=== PATIENT | male | born 1955 | race Caucasian/White ===

== ENCOUNTER 2020-03-06 00:19 | Outpatient (CLI) | payer OTHER, SELFPAY ==
[2020-03-06 15:57] LABS: SARS-CoV-2 RNA PCR Negative
== END 2020-03-06 00:20 | disposition home or self-care (01) ==
LOC: ANHCOVIDDT 00:19
PROVIDERS: PCP Family Medicine; Visit Provider Internal Medicine Gastroenterology
DX: Z01.818 Encounter for other preprocedural examination (principal); Z11.59 Encounter for screening for other viral diseases
CPT/HCPCS: 87635; C9803; U0003

== ENCOUNTER 2020-03-08 00:48 | Day surgery (SDC) | payer OTHER, SELFPAY ==
[2020-02-29 08:18] VITALS: BMI 25.9
[2020-03-08 07:04] VITALS: BP 147/78; PULSE 66; RESP 18; TEMP 36.8; O2SAT 100
[2020-03-08] MEDS: LACTATED RINGERS 1,000 ML 150 ML IV CONT (07:20)
--- NOTE | 2020-03-08 08:12 | WPDANESEPPF ---
Anes - Initial Pre Proc Eval Procedure: Operation Date: 03/08/20 08:30 Proposed Procedures p Screening Colonoscopy - Ángel Benavides MD Date/Time: 03/08/20 08:12 Surgeon: Ángel Benavides MD Pre Op Diagnosis: neoplasm screen, hx of colon polyps Patient Data Age: 64 Gender: M Height: 5 ft 10 in Weight: 79 kg Last Vital Signs Temp 98.2 F 03/08/20 07:04 Pulse 66 03/08/20 07:04 Resp 18 03/08/20 07:04 BP 147/78 H 03/08/20 07:04 Pulse Ox 100 03/08/20 07:04 Allergies Allergy/AdvReac Type Severity Reaction Status Date / Time fenofibrate AdvReac Unknown Diarrhea Verified 03/08/20 07:03 Home Medications Medication Instructions Recorded Confirmed Type atorvastatin 40 mg tablet 40 mg PO DAILY #30 tablet 01/24/20 02/29/20 Rx Patient hx anesthesia problems: none Family hx anesthesia problems: none PMFSH Past Medical History Medical History (Updated 03/08/20 @ 08:07 by Robbin Beaulieu MD) Labile hypertension Mixed hyperlipidemia Social History Social History Smoking status: Never smoker Alcohol intake: current Anes - Eval Final PreProcedure Day of Procedure 03/08/20 08:12 Patient weight: normal Heart: regular rate and rhythm Lungs: clear to auscultation Airway: Mallampati scale class III Neurological: alert and oriented Last oral intake: >/= 8 hours ASA classification: II Emergent: no Anesthetic plan: proceed Anesthesia type and monitoring: general GIVS and standard monitoring Informed Consent: The patient's anesthetic plan and its attendant risks and benefits were discussed with the patient/family/POA. Questions were solicited and answers provided to the satisfaction of the patient/family/POA.
--- NOTE | 2020-03-08 08:23 | WPDGICN ---
Assessment and Plan Assessment and plan (1) History of colon polyps: Code(s): Z86.010 - Personal history of colonic polyps Status: Acute Assessment and Plan: Plan is for surveillance colonoscopy today. He had interval evaluation at 5 year intervals is suggested future. GI Consult Note Consult date/time: 03/08/20 08:23 HPI: Johnathan Gaines is a 64 year old male Seen in evaluation at the request of Dr. Kelvin Gibson. Patient has a history of colon polyps 6 years ago. At that time they were found to be adenomatous colon polyps. He returns today for follow-up colonoscopy. His current weight appetite bowel movements are normal. He denies abdominal pain. As bowel habits return to normal. He denies any blood in his stools. Family history is noncontributory. Review of Systems Review of Systems: All systems reviewed & are unremarkable except as noted in HPI and below PMFSH Past Medical History Medical History Labile hypertension Mixed hyperlipidemia Family History Family History Mother Family history of aortic aneurysm, Onset Age: 71 Father Family history of glaucoma Hypertension Family history of elevated blood lipids Social History Social History Smoking status: Never smoker Alcohol intake: current Meds Home Medications and Allergies Home Medications Medication Instructions Recorded Confirmed Type atorvastatin 40 mg tablet 40 mg PO DAILY #30 tablet 01/24/20 02/29/20 Rx Allergies Allergy/AdvReac Type Severity Reaction Status Date / Time fenofibrate AdvReac Unknown Diarrhea Verified 03/08/20 07:03 Vital Signs Vital Signs - 24 hr 03/08/20 07:04 Temperature 36.8 C Pulse Rate 66 Respiratory Rate 18 Blood Pressure 147/78 H Pulse Oximetry 100 Exam Narrative: Exam Narrative: Physical exam reveals patient to be alert. Vital signs are stable. HEENT exam unremarkable. Lungs are clear to auscultation and percussion. Heart is without murmur or extra sounds. Abdominal exam bowel sounds are present soft nontender with no organomegaly. Digital external rectal exam is normal.
[2020-03-08] MEDS: SIMETHICONE ORAL SUSPENSION 20 MG/0.3 ML 30 ML BOTTLE 0.6 ML IRRIGATION (09:25)
[2020-03-08 09:35] VITALS: BP 100/61; PULSE 64; RESP 17; O2SAT 99
[2020-03-08 09:45] VITALS: BP 115/67; PULSE 60; RESP 18; O2SAT 98
[2020-03-08 09:55] VITALS: BP 154/93; PULSE 61; RESP 21; O2SAT 100
== END 2020-03-08 10:12 | disposition home or self-care (01) ==
PROVIDERS: PCP Family Medicine; Visit Provider Internal Medicine Gastroenterology
PROC: 0DJD8ZZ Inspection of Lower Intestinal Tract, Via Natural or Artificial Opening Endoscopic (ICD-10-PCS; CPT 45378; principal; 2020-03-08 08:30)
DX: Z12.11 Encounter for screening for malignant neoplasm of colon (principal); Z86.010 Personal history of colon polyps; K64.8 Other hemorrhoids; I10 Essential (primary) hypertension; E78.2 Mixed hyperlipidemia
CPT/HCPCS: G0105; J2704; J7120

== ENCOUNTER 2020-08-23 08:42 | Outpatient (NON) | payer OTHER, SELFPAY ==
[2020-08-26 01:48] LABS: SARS-CoV-2 RNA PCR Negative
== END 2020-08-23 08:43 ==
LOC: ANHCOVIDDT 08:44
PROVIDERS: PCP Family Medicine; Visit Provider Family Medicine
DX: R11.0 Nausea (principal); R52 Pain, unspecified; Z20.828 Contact with and (suspected) exposure to other viral communicable diseases
CPT/HCPCS: 87635; C9803; U0003

== ENCOUNTER 2020-11-29 09:44 | Outpatient (CLI) | payer OTHER, SELFPAY | END 2020-11-29 09:45 | disposition home or self-care (01) | PROVIDERS: PCP Family Medicine | DX: Z23 Encounter for immunization (principal) | CPT/HCPCS: 0001A; 91300 ==

== ENCOUNTER → 2020-12-14 09:18 | Outpatient (CLI) | payer OTHER, SELFPAY ==
--- NOTE | ~2020-12-14 | XR_ITS ---
EXAMINATION: XR chest 2V DATE: 12/14/2020 09:29 INDICATION: Cough. TECHNIQUE: Frontal and lateral views of the chest were obtained. COMPARISON: Chest 2 views 12/09/2014 FINDINGS: The chest demonstrates clear lungs without pneumonia, pleural effusion, or pneumothorax. Th e heart size is normal. IMPRESSION: 1. No acute cardiopulmonary disease. Reviewed, dictated and finalized at location A.
== END ==
PROVIDERS: PCP Family Medicine; Visit Provider Family Medicine
DX: R05 Cough (principal)
CPT/HCPCS: 71046

== ENCOUNTER 2020-12-20 09:45 | Outpatient (CLI) | payer OTHER, SELFPAY | END 2020-12-20 09:46 | disposition home or self-care (01) | LOC: ANHCOVIDVC 09:45 | PROVIDERS: PCP Family Medicine | DX: Z23 Encounter for immunization (principal) | CPT/HCPCS: 0002A; 91300 ==

== ENCOUNTER → 2021-05-18 03:25 | Outpatient (CLI) | payer OTHER, SELFPAY ==
[2021-05-18 20:11] LABS: SARS-CoV-2 RNA PCR Positive
== END ==
PROVIDERS: PCP Family Medicine; Visit Provider Physician Assistant
DX: U07.1 COVID-19 (principal)
CPT/HCPCS: C9803; U0003; U0005

== ENCOUNTER 2021-10-04 08:29 | Outpatient (CLI) | payer OTHER, SELFPAY ==
--- NOTE | 2021-10-04 12:54 | PCCARD ---
Patient Johnathan Gaines showed up on 10/04/21 for his stress echo. Echo machine would not rock picker patients EKG rhythm. After numerous attempts to try to fix the problem the Bio [facility] department was called. They were unable to correct the problem either. Problem appears to be a cord that goes from stress machine to echo machine. Told patient we were unable to do the test and that we would reschedule him for 10/11/21 at 9:00 am. If we get things fixed sooner we will call patient to work him in at a earlier time.
== END 2021-10-04 08:30 | disposition home or self-care (01) ==
LOC: ANHCARD 08:37
PROVIDERS: PCP Family Medicine; Visit Provider Physician Assistant
DX: R07.9 Chest pain, unspecified (principal); Z53.8 Procedure and treatment not carried out for other reasons
CPT/HCPCS: 99199

== ENCOUNTER 2021-10-12 08:42 | Outpatient (CLI) | payer OTHER, SELFPAY ==
--- NOTE | 2021-10-12 08:52 | EST_ITS ---
Patient Info Name: Johnathan Gaines Age: 66 years : 1955 Gender: Male Ht: 70 in Wt: 185 lbs BSA: 2.05 m2 HR: 73 bpm BP: 161 / 80 mmHg Technical Quality: Fair Exam Date: 10/12/2021 9:03 AM Exam Location: [facility] Pulmonary Patient Status: Outpatient Admit Date: 10/12/2021 Staff Ordering Physician: Gilberto Farr PA-C Maintainer [employer]: KENDRA Attending Provider: DR. NEFF Referring Physician: Chika OSBORNE; Exercise Technologist: Malathi Grewal CT Exercise Physician: Aubrey Neff DO Exam Type: CA stress echo Study Info Indications - chest pain Treadmill exercise stress echocardiogram is performed. Summary 1. 1. Negative Colin exercise stress test for ischemic ST changes by ECG criteria. 2. 2. Good functional capacity, achieving 9.8 METs of workload. 3. 3. Appropriate HR response to exercise. 4. 4. Appropriate HR recovery at 1 minute post exercise. 5. 5. Negative stress echocardiogram for ischemia by wall motion analysis. 6. 6. Patient informed of the above resutls. Stress Echo Findings Left Ventricle Appropriate increase in LV endocardial thickening with systole. Appropriate augmentation of contractility with systole. No wall motion abnormality. Left Ventricle Normal LV systolic function, no wall motion abnormality. Protocol: Colin Stress ECG Details Stage: REST Duration (min): 1 min : 3 sec Speed (mph): 0.0 Grade (%): 0 HR (bpm): 74 SBP (mmHg): 161 DBP (mmHg): 86 METS: --- Stage: REST Duration (min): 11 min : 35 sec Speed (mph): 0.0 Grade (%): 0 HR (bpm): 73 SBP (mmHg): 161 DBP (mmHg): 86 METS: --- Stage: STAGE 1 Duration (min): 1 min : 0 sec Speed (mph): 1.7 Grade (%): 10 HR (bpm): 103 SBP (mmHg): 161 DBP (mmHg): 86 METS: --- Stage: STAGE 1 Duration (min): 2 min : 0 sec Speed (mph): 1.7 Grade (%): 10 HR (bpm): 99 SBP (mmHg): 161 DBP (mmHg): 86 METS: --- Stage: STAGE 1 Duration (min): 3 min : 0 sec Speed (mph): 1.7 Grade (%): 10 HR (bpm): 100 SBP (mmHg): 178 DBP (mmHg): 76 METS: --- Stage: STAGE 2 Duration (min): 1 min : 0 sec Speed (mph): 2.5 Grade (%): 12 HR (bpm): 116 SBP (mmHg): 178 DBP (mmHg): 76 METS: --- Stage: STAGE 2 Duration (min): 2 min : 0 sec Speed (mph): 2.5 Grade (%): 12 HR (bpm): 119 SBP (mmHg): 185 DBP (mmHg): 79 METS: --- Stage: STAGE 2 Duration (min): 3 min : 0 sec Speed (mph): 2.5 Grade (%): 12 HR (bpm): 131 SBP (mmHg): 185 DBP (mmHg): 79 METS: --- Stage: STAGE 3 Duration (min): 1 min : 0 sec Speed (mph): 3.4 Grade (%): 14 HR (bpm): 148 SBP (mmHg): 185 DBP (mmHg): 79 METS: --- Stage: STAGE 3 Duration (min): 1 min : 32 sec Speed (mph): 0.0 Grade (%): 0 HR (bpm): 152 SBP (mmHg): 185 DBP (mmHg): 79 METS: --- Stage: RECOVERY Duration (min): 0 min : 27 sec Speed (mph)
== END 2021-10-12 08:43 | disposition home or self-care (01) ==
PROVIDERS: PCP Family Medicine; Visit Provider Physician Assistant
DX: R07.9 Chest pain, unspecified (principal)
CPT/HCPCS: 93351

== ENCOUNTER 2022-10-10 08:31 | Outpatient (CLI) | payer MEDICARE, SELFPAY ==
[2022-10-10 20:41] LABS: Hemoglobin A1C 5.8 % (<5.7)
[2022-10-10 20:57] LABS: Alanine Aminotransferase 36 U/L (6-50); Albumin Level 4.4 g/dL (3.5-5.1); Alkaline Phosphatase 52 U/L (38-126); Anion Gap 9 mmol/L (8-16); Aspartate Amino Transferase 42 U/L (17-59); Bilirubin,Total 0.8 mg/dL (0.2-1.3); Blood Urea Nitrogen 13 mg/dL (9-20); Calcium 8.7 mg/dL (8.4-10.2); Carbon Dioxide 27 mmol/L (22-30); Chloride 100 mmol/L (98-107); Cholesterol 143 mg/dL (0-200); Estimated Glomerular Filt Rate > 60; Glucose 87 mg/dL (65-110); HDL Direct 60 mg/dL; Potassium 4.6 mmol/L (3.4-5.0); Sodium 136 mmol/L (137-145); Triglycerides 155 mg/dL (<150)
[2022-10-10 21:08] LABS: LDL Cholesterol Direct 31 mg/dL
[2022-10-10 21:27] LABS: Prostate Specific Antigen 4.5 ng/mL (< OR = 4.0)
== END 2022-10-10 08:32 | disposition home or self-care (01) ==
LOC: ANHGOSHLAB 08:33
PROVIDERS: PCP Family Medicine; Visit Provider Family Medicine
DX: E78.2 Mixed hyperlipidemia (principal); R73.03 Prediabetes; R97.20 Elevated prostate specific antigen [PSA]; Z12.5 Encounter for screening for malignant neoplasm of prostate; I10 Essential (primary) hypertension
CPT/HCPCS: 36415; 80053; 80061; 83036; 84153; G0103

== ENCOUNTER → 2022-11-13 08:06 | Outpatient (CLI) | payer MEDICARE, SELFPAY ==
--- NOTE | ~2022-11-13 | CT_ITS ---
EXAMINATION: CT facial bones w con DATE: 11/13/2022 08:44 INDICATION: Radiolucent lesion of left mandible. TECHNIQUE: Computed tomography (CT) of the facial bones and maxillofacial region was performed with 7 5 mL Omnipaque 350 intravenous contrast. Automated exposure control and iterative reconstruction tech [employer] were employed. The dose-length product was 325.90 mGy-cm. COMPARISON: Brain MRI 07/02/2018 FINDINGS: There are no pathologically enlarged lymph nodes. There is plaque in the proximal internal carotid arteries with 0% stenosis relative to normal distal artery lumen diameters. There is a mucous retention cyst in right maxillary sinus. There is mild mucosal thickening in sphenoid sinus. There i s a nonaggressive lytic lesion in left body of the mandible distal to the mental foramen measuring 1. 8 x 1.0 x 1.1 cm. The lesion demonstrates a sclerotic margin and a 13 mm dehiscence at the lingual co rtex. The lesion contains soft tissue attenuation and fat. IMPRESSION: 1. 1.8 cm nonaggressive lytic lesion in the left body of the mandible, stable from 07/02/2018, most li jens a benign lesion such as an intraosseous lipoma. Reviewed, dictated and finalized at location A. ER CHIEF IMPRESSION: 1. 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
[2022-11-13 08:31] LABS: Estimated Glomerular Filt Rate > 60
== END ==
PROVIDERS: PCP Family Medicine; Visit Provider Dentist General Practice
DX: M27.49 Other cysts of jaw (principal)
CPT/HCPCS: 70487; Q9967

== ENCOUNTER 2023-08-26 11:01 | Outpatient (CLI) | payer MEDICARE, SELFPAY ==
--- NOTE | 2023-08-26 11:06 | ECG_ITS ---
Measurements Intervals Gabbs Rate: 86 P: 38 AK: 153 QRS: 18 QRSD: 108 T: 61 QT: 376 QTc: 450 Interpretive Statements SINUS RHYTHM WITH VENTRICULAR PREMATURE COMPLEXES POSSIBLE LEFT ATRIAL ENLARGEMENT DELAYED PRECORDIAL R/S TRANSITION BORDERLINE ST-T WAVE ABNORMALITY- HIGH LATERAL LEADS BASELINE ARTIFACT- I, II, III, AVR, AVL, AVF, V1-V2 BORDERLINE ECG NO PREVIOUS ECG AVAILABLE FOR COMPARISON Electronically Signed On 08-26-2023 11:48:40 HISTORICAL INTERPRETER by Aubrey Robert D.O.
[2023-08-26 11:47] LABS: Anion Gap 8 mmol/L (8-16); Blood Urea Nitrogen 13 mg/dL (9-20); Calcium 9.1 mg/dL (8.4-10.2); Carbon Dioxide 29 mmol/L (22-30); Chloride 94 mmol/L (98-107); Estimated Glomerular Filt Rate > 60; Glucose 111 mg/dL (65-110); Sodium 131 mmol/L (137-145)
== END 2023-08-26 11:02 | disposition home or self-care (01) ==
LOC: ANHSURGERY 11:06
PROVIDERS: Anesthesiology; PCP Family Medicine; Visit Provider Surgery
DX: Z79.899 Other long term (current) drug therapy (principal); I10 Essential (primary) hypertension; Z01.818 Encounter for other preprocedural examination
CPT/HCPCS: 36415; 80048; 93005

== ENCOUNTER 2023-08-28 02:02 | Day surgery (SDC) | payer MEDICARE, SELFPAY ==
[2023-08-25 13:10] VITALS: BMI 25.9
--- NOTE | 2023-08-25 13:15 | PC.NURSE ---
Report to the Outpatient Waiting Room, entrance under the green pavilion located off [facility], at time _1000_ on date _[id number]_. Planned Procedure Time: _1200_. Time changes happen often and if your time is changed the preop area will call you the afternoon before. - You and your visitor will be asked to self-screen and do not enter if you have any COVID symptoms. - A mask is optional within the hospital at this time. Patients may have clear liquids (water, carbonated beverages, clear teas, apple juice) until 3 hours prior to surgery with a maximum of 20 ounces. - No food from midnight until time of surgery Take the following medications with a SIP of water the morning of surgery: __None DO NOT STOP ANY OF YOUR OTHER PRESCRIPTION MEDICATIONS PRIOR TO SURGERY ?EXCEPT THE FOLLOWING Medications to discontinue per physician Fish oil Date to take last dose__Stop today. Take Biscodyl (Dulcolax) 5mg at bedtime Friday. Fleets enema at bedtime Friday and again morning. Please no make-up, nail danish, hairspray, perfume, deodorant, or body powder the day of surgery. No jewelry (including any body piercings) or valuables the day of surgery, leave them at home. Please take a shower or bath the night before, or the morning of, surgery with an antibacterial soap. Wear comfortable, loose fitting clothing. - Jewelry must be removed prior to entering the operating room. Rings and piercings that are not removed may be cut off. - The hospital will not accept responsibility for valuables. - Please leave all valuables, including medications, at home the day of surgery. If you are going home after surgery, a licensed dedicated local truck driver must drive you home. - NO public transportation without another adult if you receive anesthesia. - We recommend that an adult stay with you for 24 hours following discharge. - We also recommend that you do not drive, make important decision, drink alcoholic beverages, or take any drugs that were not prescribed by your health care provider for at least 24 hours after your discharge time. Follow any additional instructions given to you from your surgeon. If you or anyone in your household have experienced Covid symptoms in the past week, please notify your surgeon or the nurse liaison at the phone number below for possible testing. Telephone instructions given to _Johnathan_and asked if any additional questions and then verbalized understanding. Patient advised to call surgeon office or pre surgery nurse liaison [phone] if any additional questions.
[2023-08-28] VITALS (9 sets, daily range): BP systolic 138–164; BP diastolic 73–93; PULSE 60–94; RESP 12–18; TEMP 36.4–36.9; O2SAT 96–100
[2023-08-28] MEDS: KETOROLAC 15 MG/ML VIAL (*BKC) IV PUSH (10:55)
[2023-08-28] MEDS: LACTATED RINGERS 1,000 ML 30 ML IV CONT (10:55)
[2023-08-28] MEDS: ACETAMINOPHEN 500 MG TABLET 1000 MG PO (10:55)
[2023-08-28 10:56] LABS: Sodium 132 mmol/L (137-145)
--- NOTE | 2023-08-28 10:57 | P.PNAN_ITS ---
Anes - Initial Pre Proc Eval Procedure: Operation Date: 08/28/23 12:00 Proposed Procedures p Excision Thrombosed External Hemorrhoid - Filemon Coulter MD Date/Time: 08/28/23 10:57 Surgeon: Filemon Coulter MD Pre Op Diagnosis: Thrombosed Ext Hemorrhoid Patient Data Age: 68 Gender: M Height: 1.78 m Weight: 81.8 kg Allergies Allergy/AdvReac Type Severity Reaction Status Date / Time lisinopril AdvReac Intermediate cough Verified 08/25/23 13:08 fenofibrate AdvReac Unknown Diarrhea Verified 08/25/23 13:08 Home Medications Medication Instructions Recorded Confirmed Type atorvastatin 20 mg tablet See Rx Instructions .Route 08/06/21 08/25/23 Rx .COMPLEX #90 tabs sildenafil 50 mg tablet 50 mg PO DAILY PRN sexual activity 12/04/21 08/25/23 Rx #30 tabs irbesartan 150 1 tablet PO DAILY #100 tabs 02/05/23 08/25/23 Rx mg-hydrochlorothiazide 12.5 mg tablet omega-3 fatty acids 1,000 mg PO DAILY 08/25/23 08/25/23 History Laboratory Tests 08/28/23 10:38 Sodium 132 L mmol/L (137-145) Patient hx anesthesia problems: none Family hx anesthesia problems: none Results Review: All pre-operative results and documents have been reviewed as part of the pre- operative evaluation. FORMERLY [facility], [facility] Past Medical History Medical History Cough resolved off lisinopril Dry cough resolved off linisnopril Labile hypertension Mixed hyperlipidemia Family History Family History Mother Family history of aortic aneurysm, Onset Age: 71 Father Family history of glaucoma Hypertension Family history of elevated blood lipids Social History Social History Smoking status: Never smoker Alcohol intake: current Drinks per week: 12 Substance use: never Lack of Transportation: No Lack of Food: Never True Current Housing: I Have Housing Concerned About Future Housing: No Difficulty Paying Gas/Electric Bills: No Difficulty Paying for Meds: No Currently Unemployed: No Education: Trade/Vocational Certificate Difficulty w/ Childcare or Family Care: No Living arrangements: with family Spiritual care concerns: No Anes - Eval Final PreProcedure Day of Procedure 08/28/23 10:57 Patient weight: normal Heart: regular rate and rhythm Lungs: clear to auscultation Airway: Mallampati scale class II Neurological: alert and oriented Last oral intake: >/= 8 hours ASA classification: III Emergent: no Anesthetic plan: proceed Anesthesia type and monitoring: general LMA and standard monitoring Results Review: All pre-operative results and documents have been reviewed as part of the pre- operative evaluation. Informed Consent: The patient's anesthetic plan and its attendant risks and benefits were discussed with the patient/family/POA. Questions were solicited and answers provided to the satisfaction of the patient/family/POA.
--- NOTE | 2023-08-28 11:09 | SUR.PREOP ---
na+ was repeated today. dr thapa aware of new na+ of 132 today. ok to procede.
--- NOTE | 2023-08-28 12:02 | WPDHPUPDATE1 ---
History and Physical Update Update Date/Time: 08/28/23 12:02 History and Physical has been reviewed, including an updated exam of the patient. There are NO changes in the patient's condition. Risks, benefits, and alternatives have been discussed and questions answered. Patient agrees to proceed with procedure.
[2023-08-28] MEDS: ceFAZolin 2 GM/D5W 50 ML 2 GM/50 ML BAG IVPB (12:08)
[2023-08-28] MEDS: BUPIVACAINE/EPINEPHRINE 0.5% 50 ML VIAL 10 ML INFILTRATE (12:34)
--- NOTE | 2023-08-28 13:11 | W.PM.PROC2 ---
Procedure Note - Detailed Date of Procedure 08/28/23 Pre-op Diagnosis Thrombosed Ext Hemorrhoid Post-op Diagnosis Same Procedure Performed Excision right anterior thrombosed external hemorrhoid Surgeon Filemon Coulter MD Short Order Fry Cook Willis Phillips [facility] Anesthesia General and Local (0.5% MARCAINE WITH EPINEPHRINE) Indications Patient noticed a painful nodule after bowel movement on the right side of the rectum about 3 weeks ago. The pain has dissipated but the nodule persists. He was seen in the office and found to have a large thrombosed external hemorrhoid in the right anterior position. He is taken to surgery now for excision to prevent recurrence. Findings Large thrombosed external hemorrhoid on the right anterior position. No significant internal hemorrhoids. No other external hemorrhoids. Description of Procedure Patient was taken to surgery and induced into general anesthesia. He was turned prone and then placed in prone myah-knife position. The buttocks were taped apart. Prep and drape was carried out. First we examined the perianal skin and the anal canal using a Hill-Regino anoscope. No other internal or external hemorrhoids were evident that were pathologic. I then infiltrated local all around the right-sided thrombosed external hemorrhoid. The thrombosed hemorrhoid was then excised with an ellipse. There was minimal bleeding and this was controlled with cautery. I then closed the wound with interrupted 3-0 chromic suture. I reinspected the anal canal and all looked good with no bleeding and no other findings of concern. Patient was then dressed over the rectum with Xeroform gauze fluffs and Promise panties. He was returned to a supine position. He was awakened and extubated. He was then taken to recovery in good condition. Sponge and needle counts were correct x2. Estimated Blood Loss -10.0 Drains No Packing No Pathology Yes (Right anterior thrombosed external hemorrhoid) Complications No immediate complications Condition Stable Disposition PACU [facility] Billing Surgery - Charge Forward: Surgery Billing (Excision thrombosed external hemorrhoid)
== END 2023-08-28 15:10 | disposition home or self-care (01) ==
PROVIDERS: Anesthesiology; PCP Family Medicine; Visit Provider Surgery
PROC: (CPT 46320; principal; 2023-08-28 12:00)
DX: K64.5 Perianal venous thrombosis (principal); I10 Essential (primary) hypertension
CPT/HCPCS: 46320; 36415; 80048; 84295; 88304; 93005; A9270; J0690; J1100; J1885; J2250; J2405; J2704; J3010; J7120

== ENCOUNTER 2024-10-18 15:14 | Outpatient (CLI) | payer MEDICARE, SELFPAY ==
--- NOTE | ~2024-10-18 | XR_ITS ---
HISTORY: M54.9 - Dorsalgia, unspecified COMPARISON: None. TECHNIQUE: 2 view lumbar spine. FINDINGS: Lumbar vertebral bodies are normally aligned. There are 5 non-rib bearing lumbar vertebral bodies. Significant degenerative disease is identified with osteophyte formation, disc space narrowing and en dplate changes. Facet arthropathy is also present. On standing view, multiple air-fluid levels are identified, to the right of midline. There are no lytic or sclerotic lesions. IMPRESSION: Significant degenerative disease, without acute compression fractures. Multiple air-fluid levels to the right of midline incidentally noted. Reviewed, dictated and finalized at location A. TER FOREMAN
--- NOTE | ~2024-10-18 | XR_ITS ---
HISTORY: M54.9 - Dorsalgia, unspecified COMPARISON: None TECHNIQUE: 3 views of the thoracic spine were performed. FINDINGS: No acute compression fracture is present. Bone mineralization is age-appropriate. No significant degenerative disease. IMPRESSION: Unremarkable radiographic evaluation of the thoracic spine, as detailed above. Reviewed, dictated and finalized at location A. E RECLAMATION TENDER
== END 2024-10-18 15:15 | disposition home or self-care (01) ==
LOC: GOSHIMG 15:15
PROVIDERS: PCP Family Medicine; Visit Provider Family Medicine
DX: M51.369 Other intervertebral disc degeneration, lumbar region without mention of lumbar back pain or lower extremity pain (principal)
CPT/HCPCS: 72072; 72100

== ENCOUNTER 2024-10-25 10:26 | Outpatient (CLI) | payer MEDICARE, SELFPAY ==
--- NOTE | ~2024-10-25 | XR_ITS ---
Supine and upright views of the abdomen Clinical history: Abdominal pain Findings: Bowel gas pattern is nonspecific. No evidence for obstruction or free air. No abnormal mass lesion or calcification is seen. Osseous structures are intact. Impression: No significant abnormality is seen. Reviewed, dictated and finalized at [facility]. ION CHIEF Impression: No significant abnormality is seen.
== END 2024-10-25 10:27 | disposition home or self-care (01) ==
LOC: GOSHIMG 10:26
PROVIDERS: PCP Family Medicine; Visit Provider Family Medicine
DX: R93.3 Abnormal findings on diagnostic imaging of other parts of digestive tract (principal); M54.9 Dorsalgia, unspecified
CPT/HCPCS: 74018

== ENCOUNTER 2024-11-04 10:34 | Outpatient (RCR) | payer MEDICARE, SELFPAY ==
--- NOTE | 2024-11-04 11:56 | OPREHPOC ---
Outpatient Therapy Plan of Care This is a Multidisciplinary Plan of Care that may contain components documented by all disciplines (PT, OT, and ST.) PT Problem 1 PT Problem #1 Knowledge Deficit PT Goal 1 Goal / Goal Update *indep with HEP Target Visit 6 PT Problem 2 PT Problem #2 Pain PT Goal 1 Goal / Goal Update * pt report pain rating at 1/10 at worst Target Visit 6 PT Problem 3 PT Problem #3 Impaired Flexibility PT Goal 1 Goal / Goal Update increase hip and trunk flexibility to improve posture and decrease strain on spine: anterior hip/quad length with prone knee flexion to 140' 1* R 2* L supine piriformis with cross leg, pt report not tight 3* R 4* L 5* in all 4's, pt have minimal motion of thoracic spine Target Visit 6 PT Problem 4 PT Problem #4 Impaired Functional Mobility PT Goal 1 Goal / Goal Update * pt demonstrate correct body mechanics with lifting, simulated home tasks Target Visit 6
--- NOTE | 2024-11-04 11:56 | PTOPEVAL1 ---
Assessment and note entered by Fior France, PT Evaluation Information Assessment Status Evaluation ICD-10 Condition Codes (PT) Pain in low back M54.50 Onset Jul 2024 Subjective Information in July was trimming trees, using chain saw and pulled back muscle; is feeling better now, but still there some; had x ray-reports arthritis activity: indep with all home and self care tasks retired; Reported Pain Level Pain Score 1: Self Report Additional Pain Score Comments low back tight, not that bad; is doing better now; staying 1/10, little sore decrease pain: stretching back, heat pad, push thumb on R side of low back to get muscle to relax increase pain: nothing past few days; educated on use of heat & stretching PRN to manage tightness, use of tennis ball over the sore spot, in supine or standing with back to wall Assessment PT Clinical Summary Johnathan has the diagnosis of back pain. He reports onset in July with trimming trees, chain saw use and lifting wood. Since then, pain is less and almost gone. He is active with home activities. Self assessment Oswestry rating of 8% limitation. With the evaluation: he has good strength of trunk and LE's; slight tightness over R and L piriformis and quads, with decreased spinal mobility of lumbar extension and thoracic motion. Skilled PT services are indicated for education for pain management and back care, HEP. Use of modalities PRN for pain. Plan of Care Interventions Electrical Stimulation,Hot Pack/Cold Pack,Manual Therapy,Neuro Re-education,Patient/Caregiver Education,Therapeutic Activities,Therapeutic Exercise,Ultrasound PT Services Indicated Yes Treatment Frequency and 1-2x/wk for 6 visits Duration These treatments will address the objective and functional deficits as defined above. The patient will be advanced safely and appropriately in order for the patient to progress towards his/her prior level of function. Additional exercises will be introduced and as well as a comprehensive home exercise program upon discharge, if needed, ?to ensure carryover of functional gains achieved in the clinic. This treatment plan has been reviewed and agreement upon by the patient.
--- NOTE | 2024-12-17 12:51 | PTOPDC ---
Assessment and note entered by Fior France, PT Assessment Status Discharge - Pt Not Present ICD-10 Condition Codes (PT) Pain in low back M54.50 Onset Jul 2024 Subjective Information pt was not seen this date; Assessment PT Clinical Summary Johnathan received the PT evaluation on Nov 04 and was issued HEP. He did not call for any further treatment sessions Discharge PT. The goals were not addressed. Plan of Care PT Services Indicated No
== END 2024-12-17 14:33 | disposition home or self-care (01) ==
LOC: ANHPT 10:34
PROVIDERS: PCP Family Medicine; Visit Provider Family Medicine
DX: M54.50 Low back pain, unspecified (principal)
CPT/HCPCS: 97110; 97161; 97530

== ENCOUNTER 2025-01-24 03:19 | Observation (INO) | payer MEDICARE, SELFPAY ==
[2025-01-24] VITALS (14 sets, daily range): BP systolic 122–148; BP diastolic 54–80; PULSE 72–100; RESP 14–20; TEMP 36.2–38.3; O2SAT 95–100; BMI 25.2
--- NOTE | ~2025-01-24 | CT_ITS ---
CT of the Abdomen and Pelvis: Indication: Abdominal pain Technique: 2.5 mm axial scans were obtained through the abdomen and pelvis following intravenous adm inistration of 100 cc of Omnipaque 350. Dose reduction technique was used on this scan by utilizing a utomated exposure control and iterative reconstruction technique. The dose-length product (DLP) was 4 09.69 mGy-cm. Findings: Scans through the lung bases are unremarkable. Posterior hepatic cyst noted. Small calcified gallstones are present. The spleen, pancreas, adrenals and kidneys are within normal limits. There are atherosclerotic calcifications of the aorta. No lymp hadenopathy. Appendix dilated to 13 mm with periappendiceal inflammatory stranding, consistent with acute appendic itis. No abscess or free air. No bowel obstruction. Images through the pelvis were performed. Urinary bladder unremarkable. Prostate gland is significant ly enlarged. No ascites. Impression: Acute appendicitis, as detailed above. No abscess or free air. Cholelithiasis. Significantly enlarged prostate gland. Reviewed, dictated and finalized at location . Impression: Acute appendicitis, as detailed above. No abscess or free air. Cholelithiasis. Significantly enlarged prostate gland.
--- OUTSIDE RECORDS SUMMARY | 2025-01-24 03:22 | XMS_ITS | Clinical Summary ---
Author Organization [facility] Address [address] [place] [id number] Care Team Providers Care Communication Center Operator Name Role Phone Unavailable Primary Care Provider Unavailabl e Social History Tobacco Use Types Packs/Day Years Used Date Smoking Tobacco: Never Assessed Sex and Gender Information Value Date Recorded Sex Assigned at Not on file Legal Sex Male 7:23 PM CDT Gender Identity Not on file Sexual Orientation Not on file Plan of Treatment Health Maintenance Due Date Last Done Comments Colorectal Cancer Screening Colonoscopy (10 Years) 1955 Hepatitis C 1975 DTaP, Tdap and Td Vaccines ( 1 - Tdap) 1976 Pneumococcal Vaccine: 50+ Ye ars (1 of 1 - PCV) 2007 Zoster Vaccines (1 of 2) 2007 COVID-19 Vaccine ( - 2023-2 5 season) 2024 RSV Immunization or 60+ Years (1 - 1-dose 75+ series) 2032 Meningococcal B Vaccine Aged Out No l onger eligible based on patient's age to complete this topic Meningococcal Vaccine Aged Out No philippe heidi eligible based on patient's age to complete this topic RSV Immunizations Under 20 Months Aged Out No longer eligible based on patient's age to complete this topic
--- OUTSIDE RECORDS SUMMARY | 2025-01-24 03:22 | XMS_ITS | Clinical Summary ---
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
--- OUTSIDE RECORDS SUMMARY | 2025-01-24 03:22 | XMS_ITS | Encounter Summary ---
Author Organization [employer] Address [address] [place] [address] Care Team Providers Care Before School Babysitter Name Role Phone Unavailable Primary Care Provider Unavailabl e Encounter Details Date Type Department Care Team (Late st Contact Info) Description 09/16/2017 Lab Requisition [email or web address] [address] [employer] [address] [place] [address] [place] [id number] [facility] [address] [place] [address] Encounter for general adult medical examination without abnormal findings Social History Tobacco Use Types Packs/Day Years Used Date Smoking Tobacco: Never Assessed Sex and Gender Information Value Date Recorded Sex Assigned at Not on file 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 Blood Collection / Unknown 09/16/2017 2:25 PM MIDDLE SCHOOL PRINCIPAL 09/16/2017 11:21 PM MIDDLE SCHOOL PRINCIPAL Narrative [facility] [employer] [facility] - 09/17/2017 12:40 AM MIDDLE SCHOOL PRINCIPAL The concentration of PSA in a given specimen, as determined by assays from different manufacturers, can vary because of differences in assay methods and reagent specificity. Values obtained with different assay methods cannot be used interchangeably. The testing method in use is the CHARO Electrochemiluminescence Immunoassay. Dariel Scott MD CHEMISTRY ORDERABLES Final R esult Performing Organization Address [facility]/State/[facility] Co de Phone Number [facility]# [id number] [address] [place] [id number] documented in this encounter Visit Diagnoses Diagnosis Encounter for general adult medical examination without abnormal findings Routine general medical examination at a health care facility documented in this encounter
[2025-01-24 04:21] LABS: Basophils Percent Auto 0.2 % (0.2-1.2); Eosinophils Percent Auto 0.1 % (0-4.4); Hematocrit 43.3 % (42.0-52.0); Hemoglobin 15.1 g/dL (14.0-18.0); Immature Granulocyte Absolute 0.07 K/mm3 (0.00-0.031); Immature Granulocyte Percent A 0.4 % (0-0.5); Lymphocytes Absolute Auto 1.04 K/mm3 (0.9-3.2); Lymphocytes Percent Auto 5.2 % (18.3-44.2); Mean Corpuscular HGB Conc 34.9 g/dl (32-36); Mean Corpuscular Hemoglobin 31.6 pg (26-34); Mean Corpuscular Volume 90.6 fl (80-100); Mean Platelet Volume 9.7 fl (7.4-10.4); Monocytes Absolute Auto 0.5 K/mm3 (0.1-0.6); Monocytes Percent Auto 2.5 % (2.6-8.5); Neutrophils Absolute Auto 18.2 K/mm3 (1.3-6.7); Neutrophils Percent Auto 91.6 % (45.5-73.1); Platelet Count Result 307 k/mm3 (150-375); Red Blood Count 4.78 M/mm3 (4.6-6.20); Red Cell Distribution Width 13.8 % (11.5-14.5); White Blood Count 19.9 K/mm3 (4.5-10.0)
--- NOTE | 2025-01-24 04:26 | ED_ITS ---
HPI - Abdominal Pain General Chief Complaint: Abdominal Pain Stated Complaint: abdominal pain Time Seen by Provider: 01/24/25 04:20 Source: patient Mode of arrival: ambulatory Limitations: no limitations History of Present Illness HPI narrative: This is a 69-year-old male, with history of hypertension, presents to the emergency department complaining of right lower quadrant abdominal pain for the past day. The patient states Friday evening he aorta thought was bad yogurt. He felt ?balled up in the gut rated 5/10 radiation. The pain progressively worsened and is now sharp, rated 8/10 and primarily in the right lower quadrant. He states he last ate approximately 8 hours ago. He states he is able to pass gas and has had a small bowel movement. He denies bleeding, chest pain, shortness of breath, loss of consciousness. He has no other complaints at this time. Related Data Home Medications ?Medication ?Instructions ?Recorded ?Confirmed ?Last Taken ?Type amlodipine 10 mg tablet (Norvasc) 5 mg PO DAILY blood pressure 01/24/25 01/24/25 01/23/25 History Allergies Allergy/AdvReac Type Severity Reaction Status Date / Time lisinopril AdvReac Intermediate cough Verified 01/24/25 04:14 fenofibrate AdvReac Unknown Diarrhea Verified 01/24/25 04:14 Review of Systems 2 Review of Systems: All systems reviewed & are unremarkable except as noted in HPI and below PMFSH Past Medical History Medical History History of colon polyps Vitamin D deficiency Essential (primary) hypertension Mixed hyperlipidemia Pre-diabetes Labile hypertension Mixed hyperlipidemia Surgical History Surgical History Hx of hemorrhoidectomy (~07/2023) Excision right anterior thrombosed external hemorrhoid 08/28/23 [facility] Family History Family History Mother Family history of aortic aneurysm, Onset Age: 71 Father Family history of glaucoma Hypertension Family history of elevated blood lipids Social History Social History Social History: Caffeine- 1.5 cup coffee daily Smoking status: Never smoker Tobacco type: cigars Second hand tobacco smoke exposure: No Alcohol intake: current Drinks per week: 3 Substance use: never Substance use type: does not use Do You Feel Safe in your Home?: Yes Lack of Transportation: No Lack of Food: Never True Current Housing: I Have Housing Concerned About Future Housing: No Difficulty Paying Gas/Electric Bills: No Difficulty Paying for Meds: No Currently Unemployed: No Education: Trade/Vocational Certificate Difficulty w/ Childcare or Family Care: No Living arrangements: with family Gender identity (if verbalized by the patient): Male Spiritual care concerns: No Agree to blood products: Yes Exam 2 Narrative: GENERAL: Well-developed, well-nourished, and in no acute distress. HEAD: Normocephalic, atraumatic. EYES: PERRLA and EOMI. CHEST: Clear to auscultation. No respiratory distress. No wheezes rales or rhonchi HEART: Regular rate and rhythm. No murmur heard. Normal peripheral pulses. ABDOMEN: Soft, tender palpation in the right lower quadrant with rebound and active guarding, nondistended, normal active bowel sounds. No CVA tenderness EXTREMITIES: Normal range of motion. No edema. SKIN: Warm, dry, no rash. NEURO: Alert and oriented x3. No focal deficit. Moving all 4 limbs spontaneously PSYCH: Normal mood and affect. Course Course Emergency Course: 05:27 - STAT Rad interpretation of CT abdomen pelvis demonstrates a ?dilated appendix measuring up to 13 mm with appendicolith and periappendiceal inflammatory stranding compatible with acute appendicitis. No collection or free air. No bowel obstruction. Minimal colonic diverticulosis without diverticulitis. Cholelithiasis. Prostatomegaly and bladder wall thickening; correlate with urinalysis. ? White blood cell count elevated at 19.9 with hemoglobin of 15.1 and platelets of 307. Chemistries demonstrate mild hyponatremia with sodium of 128. Lactic acid 3.1. 05:40 - I discussed the patient with general surgeon, Dr. Lipscomb who accepts admission. Vital Signs Vital signs: Vital Signs Temperature 97.4 F L 01/24/25 03:21 Pulse Rate 80 01/24/25 03:21 Respiratory Rate 20 01/24/25 03:21 Blood Pressure 122/54 L 01/24/25 03:21 Pulse Oximetry 98 01/24/25 03:21 Oxygen Delivery Room Air 01/24/25 03:21 Temperature 97.4 F L 01/24/25 03:21 Pulse Rate 73 01/24/25 06:17 Respiratory Rate 18 01/24/25 06:17 Blood Pressure 132/76 01/24/25 06:17 Pulse Oximetry 100 01/24/25 06:17 Oxygen Delivery Room Air 01/24/25 03:21 MDM - Abdominal Pain MDM Narrative Medical decision making narrative: Plan: Labs, imaging, pain control, antiemetics, reassess Differential Diagnosis Differential diagnosis: Likely abdominal pain, acute appendicitis, calculus of kidney, constipation, diverticulitis, gastroenteritis, small bowel obstruction and other (Ischemic bowel, UTI, pyelonephritis, other) Lab Data 01/24/25 04:14 01/24/25 04:14 Labs: Lab Results 01/24/25 01/24/25 Range/Units 04:14 04:33 WBC 19.9 H (4.5-10.0) K/mm3 RBC 4.78 (4.6-6.20) M/mm3 Hgb 15.1 (14.0-18.0) g/dL Hct 43.3 (42.0-52.0) % MCV 90.6 (80-100) fl MCH 31.6 (26-34) pg MCHC 34.9 (32-36) g/dl RDW 13.8 (11.5-14.5) % Plt Count 307 (150-375) k/mm3 MPV 9.7 (7.4-10.4) fl Immature Gran % (Auto) 0.4 (0-0.5) % Neut % (Auto) 91.6 H (45.5-73.1) % Lymph % (Auto) 5.2 L (18.3-44.2) % [place] % (Auto) 2.5 L (2.6-8.5) % Eos % (Auto) 0.1 (0-4.4) % Baso % (Auto) 0.2 (0.2-1.2) % Lymph # (Auto) 1.04 (0.9-3.2) K/mm3 [place] # (Auto) 0.5 (0.1-0.6) K/mm3 Eos # (Auto) 0.0 (0-0.3) K/mm3 Baso # (Auto) 0.0 (0.0-0.1) K/mm3 Abs Immat Gran (auto) 0.07 H (0.00-0.031) K/mm3 Absolute Neuts (auto) 18.2 H (1.3-6.7) K/mm3 Absolute Nucleated RBC 0.000 (0.0-0.012) K/mm3 Nucleated RBC % 0.0 (0.0-0.2) % Sodium 128 L (137-145) mmol/L Potassium 4.1 (3.4-5.0) mmol/L Chloride 93 L (98-107) mmol/L Carbon Dioxide 22 (22-30) mmol/L Anion Gap 13 H (4-12) mmol/L BUN 13 (9-20) mg/dL Creatinine 0.80 (0.7-1.3) mg/dL Estim Creat Clear Calc 81 ml/min Estimated GFR > 60 (59 - ) Glucose 188 H (65-110) mg/dL Lactic Acid 3.1 H (0.7-2.0) mmol/L Calcium 9.0 (8.4-10.2) mg/dL Total Bilirubin 1.5 H (0.2-1.3) mg/dL AST 23 (17-59) U/L ALT 27 (6-50) U/L Alkaline Phosphatase 65 (38-126) U/L Total Protein 8.0 (6.3-8.2) g/dL Albumin 4.7 (3.5-5.1) g/dL Lipase 32 (23-300) U/L Discharge Plan Discharge Clinical Impression: Acute hyponatremia, Abdominal pain, RLQ Acute appendicitis Qualifiers: Acute appendicitis type: other Qualified Code(s): K35.890 - Other acute appendicitis without perforation or gangrene Patient Disposition: Still a Patient Condition: Serious Time of Disposition: 05:40
[2025-01-24] MEDS: MORPHINE SULFATE (*CRX) 4 MG/ML INJ IV PUSH ×3 (04:34→08:56)
[2025-01-24] MEDS: ONDANSETRON INJ 4 MG/2 ML VIAL IV PUSH (04:34)
[2025-01-24 04:39] LABS: Alanine Aminotransferase 27 U/L (6-50); Albumin Level 4.7 g/dL (3.5-5.1); Alkaline Phosphatase 65 U/L (38-126); Anion Gap 13 mmol/L (4-12); Aspartate Amino Transferase 23 U/L (17-59); Bilirubin,Total 1.5 mg/dL (0.2-1.3); Blood Urea Nitrogen 13 mg/dL (9-20); Carbon Dioxide 22 mmol/L (22-30); Chloride 93 mmol/L (98-107); Estimated CRCL calculation 81 ml/min; Estimated Glomerular Filt Rate > 60; Glucose 188 mg/dL (65-110); Lipase 32 U/L (23-300); Potassium 4.1 mmol/L (3.4-5.0); Sodium 128 mmol/L (137-145)
[2025-01-24 05:00] LABS: Lactic Acid Reflex 3.1 mmol/L (0.7-2.0)
--- OUTSIDE RECORDS SUMMARY | 2025-01-24 05:02 | XMS_ITS | Clinical Summary ---
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
--- OUTSIDE RECORDS SUMMARY | 2025-01-24 05:02 | XMS_ITS | Clinical Summary ---
Author Organization [facility] Address [address] [place] [id number] Care Team Providers Care Antenna Engineer Name Role Phone Unavailable Primary Care Provider [...]
--- OUTSIDE RECORDS SUMMARY | 2025-01-24 05:02 | XMS_ITS | Encounter Summary ---
Author Organization [employer] Address [address] [place] [address] Care Team Providers Care Purchasing Analyst Name Role Phone Unavailable Primary Care Provider Unavailabl e Encounter Details Date Type Department Care Team (Late st Contact Info) Description 09/16/2017 Lab Requisition [facility] [address] [employer] [address] [place] [address] [place] [address] [facility] [address] [place] [address] Encounter for general adult medical examination without abnormal findings Social History Tobacco Use Types Packs/Day Years Used Date Smoking Tobacco: Never Assessed Sex and Gender Information Value Date Recorded Sex Assigned at Not on file 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 Gender Identity Not on file Sexual Orientation Not on file documented as of this encounter Plan of Treatment Not on file documented as of this encounter Procedures Procedure Name Priority Date/Time Associated Diagnosis Comments PSA Routine 09/16/2017 2:25 PM TAXONOMY TEACHER Encounter for general adult medical examination without abnormal findings documented in this encounter Results * (ABNORMAL) PSA (09/16/2017 2:25 PM TAXONOMY TEACHER) PSA 4.2(H) <4.0 ng/mL 09/17/2017 12:40 AM TAXONOMY TEACHER [facility] [employer] [facility] Blood Collection / Unknown 09/16/2017 2:25 PM TAXONOMY TEACHER 09/16/2017 11:21 PM TAXONOMY TEACHER Narrative [facility] [employer] [facility] - 09/17/2017 12:40 AM TAXONOMY TEACHER The concentration of PSA in a given specimen, as determined by assays from different manufacturers, can vary because of differences in assay methods and reagent specificity. Values obtained with different assay methods cannot be used interchangeably. The testing method in use is the CHARO Electrochemiluminescence Immunoassay. Dariel Scott MD CHEMISTRY ORDERABLES Final R esult Performing Organization Address [facility]/State/[facility] Co de Phone Number [facility]# [id number] [address] [place] [id number] documented in this encounter Visit Diagnoses Diagnosis Encounter for general adult medical examination without abnormal findings Routine general medical examination at a health care facility documented in this encounter
[2025-01-24] MEDS: SODIUM CHLORIDE 0.9% IV 2,000 ML 999 ML IV CONT (05:35)
[2025-01-24] MEDS: PIPERACILLN/TAZ 3.375GM/NS50ML 3.375 GM/50 ML BAG IVPB ×3 (05:55→23:13)
--- NOTE | 2025-01-24 06:37 | ADMGEN ---
This patient, Johnathan Gaines, was admitted to [facility] Surg Room 321-02. Patient/family oriented to hospital policies and general routines including ID bracelet, bed and alarms, visiting hours, pain management, procedures, bathroom and other care routines, personal items, smoking policy, room service/diet, and visiting hours. Information on how to activate the Rapid Response Team has been discussed. Patient/Family are encouraged to report perceived risks to care and to ask questions if they do not understand what they are told or what they should do.
[2025-01-24 06:46] LABS: Reflex Lactic Acid Yes or No Add Lactic
[2025-01-24 07:09] LABS: Add Urine Microscopic? NO; Appearance Urine Clear (Clear); Bilirubin Urine Negative (Negative); Blood Urine Negative (Negative); Color Urine Yellow (Yellow); Glucose Urine UA Negative (Negative); Ketones Urine Negative (Negative); Leukocyte Esterase Ur Negative LEU/UL (Negative); Nitrate Urine Negative (Negative); Protein Urine Negative (Negative); Urobilinogen Urine 0.2 mg/dL (<2.0); pH Urine 7.5 (5.0-9.0)
[2025-01-24 08:06] LABS: Lactic Acid 2.5 mmol/L (0.7-2.0)
--- NOTE | 2025-01-24 09:38 | P.HP_ITS ---
H&P: HPI History of Present Illness Date/Time: 01/24/25 09:38 Chief Complaint: Right lower quadrant abdominal pain Narrative: This is a 69-year-old man with PMH hypertension, who presented to the ED early this morning with complaints of right lower quadrant abdominal pain. He had an onset of generalized cramping abdominal pain 2 days ago after eating an yogurt in the evening. Yesterday, his pain localized to the right lower quadrant and became sharp in nature. It was aggravated by movement and palpation. He denies any nausea, vomiting, fever, chills, diarrhea, or any other complaints. His pain progressed into the evening last night and he was unable to sleep. Therefore, he came into the ED for evaluation. [place] [address] and sodium 128. Lactic acid 3.1 with repeat down to 2.5. CT scan of the abdomen and pelvis showed acute appendicitis with no perforation or abscess, and cholelithiasis. He was admitted and given a dose of IV Zosyn. Review of Systems Review of Systems: All systems reviewed & are unremarkable except as noted in HPI and below PMFSH Past Medical History Medical History History of colon polyps Vitamin D deficiency Essential (primary) hypertension Mixed hyperlipidemia Pre-diabetes Labile hypertension Mixed hyperlipidemia Surgical History Surgical History Hx of hemorrhoidectomy (~07/2023) Excision right anterior thrombosed external hemorrhoid 08/28/23 [facility] Family History Family History Mother Family history of aortic aneurysm, Onset Age: 71 Father Family history of glaucoma Hypertension Family history of elevated blood lipids Social History Social History Social History: Caffeine- 1.5 cup coffee daily Smoking status: Never smoker Tobacco type: cigars Second hand tobacco smoke exposure: No Alcohol intake: current Drinks per week: 21 Substance use: never Substance use type: does not use Do You Feel Safe in your Home?: Yes Lack of Transportation: No Lack of Food: Never True Current Housing: I Have Housing Concerned About Future Housing: No Difficulty Paying Gas/Electric Bills: No Difficulty Paying for Meds: No Currently Unemployed: No Education: Trade/Vocational Certificate Difficulty w/ Childcare or Family Care: No Living arrangements: with family Gender identity (if verbalized by the patient): Male Spiritual care concerns: No Agree to blood products: Yes Meds Home Medications and Allergies Home Medications ?Medication ?Instructions ?Recorded ?Confirmed ?Type ergocalciferol (vitamin D2) 1,250 1,250 mcg PO WEEKLY #12 caps 11/01/24 01/24/25 Rx mcg (50,000 unit) capsule irbesartan 300 1 tablet PO DAILY #90 tabs 12/07/24 01/24/25 Rx mg-hydrochlorothiazide 12.5 mg tablet amlodipine 10 mg tablet (Norvasc) 5 mg PO DAILY blood pressure 01/24/25 01/24/25 History Allergies Allergy/AdvReac Type Severity Reaction Status Date / Time lisinopril AdvReac Intermediate cough Verified 01/24/25 04:14 fenofibrate AdvReac Unknown Diarrhea Verified 01/24/25 04:14 Vital Signs Vital Signs - 24 hr 01/24/25 03:21 01/24/25 05:37 01/24/25 06:17 Temperature 97.4 F L Pulse Rate 80 77 73 Respiratory Rate 20 18 18 Blood Pressure 122/54 L 123/67 132/76 Pulse Oximetry 98 100 100 Oxygen Delivery Room Air Exam Const: General: comfortable and no acute distress Nutritional Appearance: average body habitus Orientation/consciousness: patient oriented x3 HENMT: Head: normocephalic and atraumatic Ears: hearing grossly normal bilaterally Mouth: Yes moist mucous membranes Eyes: General: appearance normal, both eyes and all related structures Pupils: Equal, round and reactive pupils present Neck: Neck: normal visual inspection and full ROM Resp: Effort & Inspection: no respiratory distress Auscultation: clear to auscultation bilaterally Cardio: Rate: regular rate Rhythm: regular rhythm Peripheral pulses: Peripheral pulses 2+ throughout GI: Inspection: non-distended and no scars GI Palp: Yes Soft to palpation, Yes Tenderness to palpation present (GI) (RLQ, +Rovsing's sign), Yes No hepatosplenomegaly present, Yes Hernia present (small umbilical hernia, not reducible, nontender) umbilical < 3 cm and No Rebound tenderness present Auscultation: normal bowel sounds Skin: General skin exam: normal color Neuro: General: moves all extremities and no focal motor deficits Speech: normal speech Motor exam (neuro): 5/5 motor strength present throughout Extrem: General: normal to inspection and no edema Psych: Mental Status: mental status grossly normal Attitude: cooperative Insight: Good insight present (Psych) Judgement: Good judgement present (Psych) H&P: Results Labs Labs: Short CBC 01/24/25 Range/Units 04:14 WBC 19.9 H (4.5-10.0) K/mm3 Hgb 15.1 (14.0-18.0) g/dL Hct 43.3 (42.0-52.0) % Plt Count 307 (150-375) k/mm3 BMP 01/24/25 04:14 Sodium 128 L Potassium 4.1 Chloride 93 L Carbon Dioxide 22 BUN 13 Creatinine 0.80 Glucose 188 H Calcium 9.0 Liver Function 01/24/25 Range/Units 04:14 Total Bilirubin 1.5 H (0.2-1.3) mg/dL AST 23 (17-59) U/L ALT 27 (6-50) U/L Alkaline Phosphatase 65 (38-126) U/L Albumin 4.7 (3.5-5.1) g/dL Urine 01/24/25 Range/Units 06:58 Urine Color Yellow (Yellow) Urine Appearance Clear (Clear) Urine pH 7.5 (5.0-9.0) Ur Specific [place] 1.030 (1.001-1.035) Urine Protein Negative (Negative) mg/dL Urine Glucose (UA) Negative (Negative) mg/dL Imaging CT scan - abdomen: Radiologist's impression: ITS Impressions Abdomen/Pelvis CT 01/24/25 07:51 Impression: Acute appendicitis, as detailed above. No abscess or free air. Cholelithiasis. Significantly enlarged prostate gland. Assessment and Plan Assessment and plan (1) Acute appendicitis: Qualifiers: Acute appendicitis type: other Qualified Code(s): K35.890 - Other acute appendicitis without perforation or gangrene Code(s): K35.80 - Unspecified acute appendicitis Status: Acute Assessment and Plan: CT scan reviewed and discussed with the patient. There is evidence of acute appendicitis. No perforation or abscess evident on CT. We discussed both nonoperative treatment with IV antibiotics/monitoring versus proceeding with surgery. We discussed the risks of recurrence or treatment failure with the option of antibiotic therapy. I also discussed the details of a laparoscopic appendectomy, possible open, under general anesthesia that would be done by Dr. Lipscomb. Description of the procedure, risks, benefits, alternatives, and expected recovery were discussed. He agrees to proceed with surgery. Continue IV antibiotics, IV fluids, and keep NPO. Proceed to OR today for urgent appendectomy (2) Essential (primary) hypertension: Code(s): I10 - Essential (primary) hypertension Status: Acute Assessment and Plan: BP stable, home meds on hold while NPO (3) Acute hyponatremia: Code(s): E87.1 - Hypo-osmolality and hyponatremia Status: Acute Assessment and Plan: Continue IV fluids (4) Cholelithiasis: Qualifiers: Cholelithiasis location: gallbladder Cholecystitis presence: without cholecystitis Biliary obstruction: without biliary obstruction Qualified Code(s): K80.20 - Calculus of gallbladder without cholecystitis without obstruction Code(s): K80.20 - Calculus of gallbladder without cholecystitis without obstruction Status: Chronic Assessment and Plan: Incidentally noted on CT. Asymptomatic with no findings of cholecystitis. See plan above for appendicitis. This can be monitored, no surgical indication at this time. Plan I have discussed the patient's case and plan of care with Dr. Lipscomb.
--- NOTE | 2025-01-24 10:01 | ECG_ITS ---
Test Date: 2025-01-24 10:39:28 Measurements Intervals [place] Rate: 79 P: 32 [place]: 184 QRS: -11 QRSD: 116 T: 54 QT: 392 QTc: 451 Interpretive Statements SINUS RHYTHM POSSIBLE LEFT ATRIAL ENLARGEMENT INTRAVENTRICULAR CONDUCTION DELAY DELAYED PRECORDIAL R/S TRANSITION BASELINE ARTIFACT- I, II, AVR BORDERLINE ECG No previous ECG available for comparison Electronically Signed On 01-24-2025 11:05:44 CDT by Aubrey Robert D.O.
[2025-01-24] MEDS: ACETAMINOPHEN 500 MG TABLET 1000 MG PO (10:22)
[2025-01-24] MEDS: KETOROLAC 15 MG/ML VIAL (*BKC) IV PUSH (10:23)
[2025-01-24 10:35] LABS: Glucose Point of Care 118 mg/dl (65-105)
--- NOTE | 2025-01-24 10:57 | WPDHPUPDATE1 ---
History and Physical Update Update Date/Time: 01/24/25 10:57 History and Physical has been reviewed, including an updated exam of the patient. There are NO changes in the patient's condition. Risks, benefits, and alternatives have been discussed and questions answered. Patient agrees to proceed with procedure.
--- NOTE | 2025-01-24 11:05 | P.PNAN_ITS ---
Anes - Initial Pre Proc Eval Procedure: Operation Date: 01/24/25 11:00 Proposed Procedures p Laparoscopic Appendectomy - Alva Lipscomb MD Date/Time: 01/24/25 11:05 Surgeon: Alva Lipscomb MD Pre Op Diagnosis: Acute appendicitis Patient Data Age: 69 Gender: M Height: 1.78 m Weight: 80 kg Last Vital Signs Temp 100.9 F H 01/24/25 10:38 Pulse 80 01/24/25 10:38 Resp 16 01/24/25 10:38 BP 139/64 01/24/25 10:38 Pulse Ox 100 01/24/25 10:38 O2 Del Method Room Air 01/24/25 10:38 Allergies Allergy/AdvReac Type Severity Reaction Status Date / Time lisinopril AdvReac Intermediate cough Verified 01/24/25 10:36 fenofibrate AdvReac Unknown Diarrhea Verified 01/24/25 10:36 Home Medications ?Medication ?Instructions ?Recorded ?Confirmed ?Type ergocalciferol (vitamin D2) 1,250 1,250 mcg PO WEEKLY #12 caps 11/01/24 01/24/25 Rx mcg (50,000 unit) capsule irbesartan 300 1 tablet PO DAILY #90 tabs 12/07/24 01/24/25 Rx mg-hydrochlorothiazide 12.5 mg tablet amlodipine 10 mg tablet (Norvasc) 5 mg PO DAILY blood pressure 01/24/25 01/24/25 History Laboratory Tests 01/24/25 01/24/25 01/24/25 04:14 04:33 06:58 WBC 19.9 H K/mm3 (4.5-10.0) RBC 4.78 M/mm3 (4.6-6.20) Hgb 15.1 g/dL (14.0-18.0) Hct 43.3 % (42.0-52.0) MCV 90.6 fl (80-100) MCH 31.6 pg (26-34) MCHC 34.9 g/dl (32-36) RDW 13.8 % (11.5-14.5) Plt Count 307 k/mm3 (150-375) MPV 9.7 fl (7.4-10.4) Immature Gran % (Auto) 0.4 % (0-0.5) Neut % (Auto) 91.6 H % (45.5-73.1) Lymph % (Auto) 5.2 L % (18.3-44.2) [place] % (Auto) 2.5 L % (2.6-8.5) Eos % (Auto) 0.1 % (0-4.4) Baso % (Auto) 0.2 % (0.2-1.2) Lymph # (Auto) 1.04 K/mm3 (0.9-3.2) [place] # (Auto) 0.5 K/mm3 (0.1-0.6) Eos # (Auto) 0.0 K/mm3 (0-0.3) Baso # (Auto) 0.0 K/mm3 (0.0-0.1) Abs Immat Gran (auto) 0.07 H K/mm3 (0.00-0.031) Absolute Neuts (auto) 18.2 H K/mm3 (1.3-6.7) Absolute Nucleated RBC 0.000 K/mm3 (0.0-0.012) Nucleated RBC % 0.0 % (0.0-0.2) Sodium 128 L mmol/L (137-145) Potassium 4.1 mmol/L (3.4-5.0) Chloride 93 L mmol/L (98-107) Carbon Dioxide 22 mmol/L (22-30) Anion Gap 13 H mmol/L (4-12) BUN 13 mg/dL (9-20) Creatinine 0.80 mg/dL (0.7-1.3) Estim Creat Clear Calc 81 ml/min Estimated GFR > 60 (59 - ) Glucose 188 H mg/dL (65-110) POC Capillary Glucose Lactic Acid 3.1 H mmol/L (0.7-2.0) Calcium 9.0 mg/dL (8.4-10.2) Total Bilirubin 1.5 H mg/dL (0.2-1.3) AST 23 U/L (17-59) ALT 27 U/L (6-50) Alkaline Phosphatase 65 U/L (38-126) Total Protein 8.0 g/dL (6.3-8.2) Albumin 4.7 g/dL (3.5-5.1) Lipase 32 U/L (23-300) Urine Color Yellow (Yellow) Urine Appearance Clear (Clear) Urine pH 7.5 (5.0-9.0) Ur Specific [place] 1.030 (1.001-1.035) Urine Protein Negative mg/dL (Negative) Urine Glucose (UA) Negative mg/dL (Negative) Urine Ketones Negative mg/dL (Negative) Ur Blood (Man) Negative (Negative) Urine Nitrate Negative (Negative) Urine Bilirubin Negative (Negative) Urine Urobilinogen 0.2 mg/dL (<2.0) Leukocyte Esterase Rfl Negative JOE/UL (Negative) 01/24/25 01/24/25 07:34 10:32 WBC RBC Hgb Hct MCV MCH MCHC RDW Plt Count MPV Immature Gran % (Auto) Neut % (Auto) Lymph % (Auto) [place] % (Auto) Eos % (Auto) Baso % (Auto) Lymph # (Auto) [place] # (Auto) Eos # (Auto) Baso # (Auto) Abs Immat Gran (auto) Absolute Neuts (auto) Absolute Nucleated RBC Nucleated RBC % Sodium Potassium Chloride Carbon Dioxide Anion Gap BUN Creatinine Estim Creat Clear Calc Estimated GFR Glucose POC Capillary Glucose 118 H mg/dl (65-105) Lactic Acid 2.5 H mmol/L (0.7-2.0) Calcium Total Bilirubin AST ALT Alkaline Phosphatase Total Protein Albumin Lipase Urine Color Urine Appearance Urine pH Ur Specific [place] Urine Protein Urine Glucose (UA) Urine Ketones Ur Blood (Man) Urine Nitrate Urine Bilirubin Urine Urobilinogen Leukocyte Esterase Rfl Patient hx anesthesia problems: none Family hx anesthesia problems: none Results Review: All pre-operative results and documents have been reviewed as part of the pre- operative evaluation. [facility] Past Medical History Medical History History of colon polyps Vitamin D deficiency Essential (primary) hypertension Mixed hyperlipidemia Pre-diabetes Labile hypertension Mixed hyperlipidemia Surgical History Surgical History Hx of hemorrhoidectomy (~07/2023) Excision right anterior thrombosed external hemorrhoid 08/28/23 ZEFERINO Family History Family History Mother Family history of aortic aneurysm, Onset Age: 71 Father Family history of glaucoma Hypertension Family history of elevated blood lipids Social History Social History Social History: Caffeine- 1.5 cup coffee daily Smoking status: Never smoker Tobacco type: cigars Second hand tobacco smoke exposure: No Alcohol intake: current Drinks per week: 21 Substance use: never Substance use type: does not use Do You Feel Safe in your Home?: Yes Lack of Transportation: No Lack of Food: Never True Current Housing: I Have Housing Concerned About Future Housing: No Difficulty Paying Gas/Electric Bills: No Difficulty Paying for Meds: No Currently Unemployed: No Education: Trade/Vocational Certificate Difficulty w/ Childcare or Family Care: No Living arrangements: with family Gender identity (if verbalized by the patient): Male Spiritual care concerns: No Agree to blood products: Yes Anes - Eval Final PreProcedure Day of Procedure 01/24/25 11:05 Patient weight: normal Lungs: normal air movement Airway: Mallampati scale class II Neurological: alert and oriented Last oral intake: >/= 8 hours ASA classification: II Emergent: no Anesthetic plan: proceed Anesthesia type and monitoring: general ETT and standard monitoring Results Review: All pre-operative results and documents have been reviewed as part of the pre-o perative evaluation. HTN, diet controlled hyperlipidemia. Pt typically walks outdoors twice daily, hills, no cp or sob. Informed Consent: The patient's anesthetic plan and its attendant risks and benefits were discussed with the patient/family/POA. Questions were solicited and answers provided to the satisfaction of the patient/family/POA.
[2025-01-24] MEDS: BUPIVACAINE/EPINEPHRINE 0.5% 30 ML VIAL INFILTRATE (11:39)
[2025-01-24] MEDS: LACTATED RINGERS 1,000 ML 30 ML IV CONT ×2 (11:58)
--- NOTE | 2025-01-24 12:17 | W.PM.PROC2 ---
Procedure Note - Detailed Date of Procedure 01/24/25 Pre-op Diagnosis Acute appendicitis Post-op Diagnosis Other ( acute perforated appendicitis) Procedure Performed laparoscopic appendectomy, extensive washout of right lower quadrant Surgeon Alva Lipscomb MD Anesthesia General and Local Indications 69-year-old male presenting to the emergency department complaining of severe right lower quadrant abdominal pain. Workup, including imaging, significant for acute appendicitis. Findings Acute perforated appendicitis Description of Procedure The patient was taken to the operating room and placed in the supine position. After adequate induction of general anesthesia, the patient was prepped and draped in the normal sterile fashion. A time-out was then done to verify the patient's identity, as well as the procedure being performed. I began by making a 5 mm incision in the infraumbilical region, through this a Veress needle was placed in the peritoneal cavity. CO2 gas was then insufflated and after adequate pneumoperitoneum was achieved the Veress needle was removed. Then placed a 5 mm Optiview trocar under direct visualization into the peritoneal cavity. I then insufflated through this trocar site and the endoscope was placed into the trocar. Under direct visualization, placed 2 further 5 mm suprapubic port as well as an additional 12 mm port in the left lower abdomen. At this point identified the cecum, I retracted the cecum both medially and superiorly allowing me to expose the appendix. The appendix was noted to be very dilated and inflamed with a noted perforation near the body of the appendix. Of note, there was no obvious abscess. The appendix was noted to be very adherent to the right lateral sidewall as well as the ileum. I was able to bluntly dissect the appendix from these adhesions. I then was able to locate the base of the appendix with the cecum. I created a window with the [place] dissector between the appendix itself and the mesoappendix. I then transected the mesoappendix with a white vascular staple load. The Endo-SAIDA was then reloaded with a blue staple load and I transected the base of the appendix. Once the specimen was completely detached, an endo-pouch was placed into the 12 mm port site and the specimen was removed through the endo-pouch. The appendiceal specimen will be sent to pathology for further review. I then copiously irrigated the right lower quadrant. Hemostasis was noted at both staple lines no other pathology was seen in this area. I then moved the camera to the suprapubic port to check our its port of entry. No iatrogenic injury or other pathology was noted in the upper abdomen. I then closed the 12 mm port site with a [place] code and 0 Vicryl suture under direct visualization. At this point, the abdomen was desufflated and all ports were removed. All port sites were closed with 4 Monocryl subcuticular suture. Dermabond was placed on all wounds. The patient tolerated the procedure well and was extubated in the operating room postop. He will be sent to the recovery room in stable condition. Estimated Blood Loss 10 Drains No Packing No Pathology Yes Complications No immediate complications Condition Stable Disposition PACU [facility] Billing Surgery - Charge Forward: Surgery Billing
[2025-01-24] MEDS: ACETAMINOPHEN 325 MG TABLET 650 MG PO (19:55)
[2025-01-25] MEDS: PIPERACILLN/TAZ 3.375GM/NS50ML 3.375 GM/50 ML BAG IVPB (05:16)
[2025-01-25 06:07] VITALS: BP 131/72; PULSE 68; RESP 18; TEMP 36.4; O2SAT 98
[2025-01-25 06:34] LABS: Basophils Percent Auto 0.1 % (0.2-1.2); Eosinophils Percent Auto 0.1 % (0-4.4); Hematocrit 39.9 % (42.0-52.0); Hemoglobin 13.1 g/dL (14.0-18.0); Immature Granulocyte Absolute 0.09 K/mm3 (0.00-0.031); Immature Granulocyte Percent A 0.6 % (0-0.5); Lymphocytes Absolute Auto 1.33 K/mm3 (0.9-3.2); Lymphocytes Percent Auto 8.9 % (18.3-44.2); Mean Corpuscular HGB Conc 32.8 g/dl (32-36); Mean Corpuscular Hemoglobin 31.4 pg (26-34); Mean Corpuscular Volume 95.7 fl (80-100); Monocytes Absolute Auto 1.1 K/mm3 (0.1-0.6); Monocytes Percent Auto 7.4 % (2.6-8.5); Neutrophils Absolute Auto 12.4 K/mm3 (1.3-6.7); Neutrophils Percent Auto 82.9 % (45.5-73.1); Platelet Count Result 224 k/mm3 (150-375); Red Blood Count 4.17 M/mm3 (4.6-6.20); Red Cell Distribution Width 14.4 % (11.5-14.5)
[2025-01-25 06:47] LABS: Anion Gap 8 mmol/L (4-12); Blood Urea Nitrogen 11 mg/dL (9-20); Calcium 8.7 mg/dL (8.4-10.2); Carbon Dioxide 24 mmol/L (22-30); Chloride 101 mmol/L (98-107); Estimated CRCL calculation 103 ml/min; Estimated Glomerular Filt Rate > 60; Glucose 115 mg/dL (65-110); Potassium 3.9 mmol/L (3.4-5.0); Sodium 133 mmol/L (137-145)
--- NOTE | 2025-01-25 09:46 | P.DS_ITS ---
DS: Admitting Diagnosis Discharge Date 01/25/2025 Admitting Diagnosis Acute appendicitis DS: Discharge Diagnosis Discharge Diagnosis (1) Acute perforated appendicitis: Code(s): K35.32 - Acute appendicitis with perforation, localized peritonitis, and gangrene, without abscess Status: Acute DS: Summary Hospital Course Reason for hospitalization: This is a 69-year-old man who presented to the ED with complaints of right lower quadrant abdominal pain x2 days. Workup in the ED showed leukocytosis and CT evidence of acute appendicitis. CT scan showed no evidence of perforation or abscess. He was admitted in this setting for surgical evaluation and treatment. Hospital Course: He was taken to the OR and underwent laparoscopic appendectomy on 01/24/[address] Lipscomb. He had findings of acute perforated appendicitis. He was continued on IV antibiotics postoperatively and his diet was advanced as tolerated. Postop day 1, his white blood cell count is trending down to 15,000 from 19,000 and he has remained afebrile since surgery. He is tolerating a diet and had a bowel movement this morning. Pain is well controlled without any narcotic analgesics. He is stable for discharge today on oral antibiotics and follow up with Dr. Lipscomb in 2 weeks. Status at Discharge Functional status at discharge: independent ambulation Overall status at discharge: patient is progressing back to baseline Time Spent with Patient Time attestation: Total time spent providing and/or coordinating discharge services: Time spent: Greater than 30 minutes Exam Const: General: comfortable and no acute distress GI: Inspection: non-distended and incision (incisions dry and intact) GI Palp: Yes Soft to palpation, Yes Tenderness to palpation present (GI) (incisional) and No Guarding due to palpation present (GI) Auscultation: nor mal bowel sounds Neuro: General: moves all extremities and no focal motor deficits Psych: Mental Status: mental status grossly normal Insight: Good insight present (Psych) DS: Data Data Completed and Pending Pending studies at discharge: Pending at discharge 01/24/25 11:41 Surgical [PTH] Routine Labs on day of discharge: Labs from last 24 hours 01/25/25 01/24/25 06:09 10:32 WBC 15.0 H RBC 4.17 L Hgb 13.1 L Hct 39.9 L MCV 95.7 D MCH 31.4 MCHC 32.8 RDW 14.4 Plt Count 224 MPV 10.0 Immature Gran % (Auto) 0.6 H Neut % (Auto) 82.9 H Lymph % (Auto) 8.9 L [place] % (Auto) 7.4 Eos % (Auto) 0.1 Baso % (Auto) 0.1 L Lymph # (Auto) 1.33 [place] # (Auto) 1.1 H Eos # (Auto) 0.0 Baso # (Auto) 0.0 Abs Immat Gran (auto) 0.09 H Absolute Neuts (auto) 12.4 H Absolute Nucleated RBC 0.000 Nucleated RBC % 0.0 Sodium 133 L Potassium 3.9 Chloride 101 Carbon Dioxide 24 Anion Gap 8 BUN 11 Creatinine 0.61 L Estim Creat Clear Calc 103 Estimated GFR > 60 Glucose 115 H POC Capillary Glucose 118 H Calcium 8.7 Imaging Radiologist's impression: ITS Impressions Abdomen/Pelvis CT 01/24/25 07:51 Impression: Acute appendicitis, as detailed above. No abscess or free air. Cholelithiasis. Significantly enlarged prostate gland. Discharge Plan Discharge Attending physician on discharge: Alva Lipscomb Discharging Clinician: Alva Lipscomb Anticipated Discharge Date/Time: 01/25/25 09:46 Patient Disposition: Home Activity: as tolerated Diet: as tolerated Wound Care Instructions: incision open to air Discharge Instructions: DISCHARGE INSTRUCTION SHEET FOR HERNIA, GALLBLADDER AND APPENDIX SURGERIES DR. LIPSCOMB 1. May shower in 24 hours, no soaking in bath x 2weeks. 2. Call office for: * Wound increasingly painful or bleeding * Vomiting * Fever of greater than 101 degrees 3. If no bowel movement for three days, take 1 oz. (30 ml) Milk of Magnesia or MiraLax 17g 1 to 2 times daily. 4. No heavy lifting > 10-15 pounds x 6 weeks for hernia repairs and 2 weeks for laparoscopic cholecystectomy or appendectomy. 5. No driving for 3 days or while taking narcotic pain medications. 6. Ice to surgical site for 48 hours (30 min on, then 30 min off). 7. Up walking 10-30 minutes three times per day. 8. Resume previous home medications. 9. Follow-up 10-14 days in office for wound check or as previously scheduled. ([phone]) 10. Oral pain medications prescription to be sent to pharmacy. Take Tylenol 500mg every 6 hours and Ibuprofen 600mg every 6 hours for the first 2 days, then as needed. 11. NUTRITION: Start out by drinking fluids and increase your diet as tolerated. If you experience nausea, try dry toast, crackers, and 7-UP. If nausea or vomiting persists, contact your surgeon?s office. 12. Gallbladders-Low Fat Diet for 2 weeks (send care note of low fat diet) 13. Inguinal Hernias-wear scrotal support for 48 hours 14. Abdominal Hernias-if sent home with abdominal binder, wear for the first 2 weeks (may remove to shower or at night to sleep). Revised 09/2020 Patient Instructions: Antibiotic Form Patient Language: Swazi Stand Alone Forms: General Discharge Information Follow-up/Referrals: Alva Lipscomb MD [Physician] - 2 Weeks Discharge Medications: New hydrocodone-acetaminophen 5-325 mg tablet 1 tablet PO Q6H PRN (Reason: pain) Qty: 20 0RF docusate sodium [Colace] 100 mg capsule 100 mg PO BID Qty: 20 0RF ciprofloxacin HCl [Cipro] 500 mg tablet 500 mg PO Q12H Qty: 14 0RF metronidazole 500 mg tablet 500 mg PO Q12H Qty: 14 0RF Continued irbesartan-hydrochlorothiazide 300-12.5 mg tablet 1 tablet PO DAILY Qty: 90 3RF amlodipine [Norvasc] 10 mg tablet 5 mg PO DAILY ergocalciferol (vitamin D2) 1,250 mcg (50,000 unit) capsule 1,250 mcg PO WEEKLY Qty: 12 1RF Date of admission: 01/24/25 05:45 Primary Care Provider: Enrrique Alvarez Admitting Provider: Alva Lipscomb Attending physician on admission: Alva Lipscomb Condition: Serious Quality VTE Prophylaxis VTE prophylaxis: mechanical ordered
[2025-01-25] MEDS: IRBESARTAN 150 MG TABLET 300 MG PO (10:15)
[2025-01-25] MEDS: hydroCHLOROthiazide 12.5 MG CAPSULE PO (10:16)
[2025-01-25] MEDS: amLODIPine BESYLATE 5 MG TABLET PO (10:16)
== END 2025-01-25 10:15 | disposition home or self-care (01) ==
LOC: ANHED 05:44 → ANH3MEDSUR 06:08
PROVIDERS: Admitting Provider Surgery; Emergency Provider Preventive Medicine Aerospace Medicine; PCP Family Medicine; Visit Provider Surgery
PROC: 0DTJ4ZZ Resection of Appendix, Percutaneous Endoscopic Approach (ICD-10-PCS; CPT 44970; principal; 2025-01-24 11:00)
DX: K35.32 Acute appendicitis with perforation, localized peritonitis, and gangrene, without abscess (principal); K80.20 Calculus of gallbladder without cholecystitis without obstruction; E87.1 Hypo-osmolality and hyponatremia; E78.2 Mixed hyperlipidemia; I10 Essential (primary) hypertension; R73.03 Prediabetes; Z86.0100 Personal history of colon polyps, unspecified; Z79.899 Other long term (current) drug therapy
CPT/HCPCS: 44970; 36415; 74177; 80048; 80053; 81003; 82948; 83605; 83690; 85025; 88304; 93005; 96361; 96365; 96375; 96376; 99285; A9270; G0378; J0330; J1100; J1885; J2270; J2405; J2543; J2704; J3010; J7030; J7120; Q9967

== ENCOUNTER 2025-03-17 00:17 | Day surgery (SDC) | payer MEDICARE, SELFPAY ==
[2025-03-02 12:44] VITALS: BMI 26.2
--- OUTSIDE RECORDS SUMMARY | 2025-03-17 00:22 | XMS_ITS | Encounter Summary ---
Author Organization [facility] Address [address] [place] [address] Care Team Providers Care Tub Attendant Name Role Phone Unavailable Primary Care Provider Unavailabl e Encounter Details Date Type Department Care Team (Late st Contact Info) Description 09/16/2017 Lab Requisition [facility] [address] [place] [address] [place] [id number] [facility] [address] [place] [id number] Encounter for general adult medical examination without abnormal findings Social History Tobacco Use Types Packs/Day Years Used Date Smoking Tobacco: Never Assessed Sex and Gender Information Value Date Recorded Sex Assigned at Not on file 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 Gender Identity Not on file Sexual Orientation Not on file documented as of this encounter Plan of Treatment Not on file documented as of this encounter Procedures Procedure Name Priority Date/Time Associated Diagnosis Comments PSA Routine 09/16/2017 2:25 PM ADMINISTRATIVE UNDERWRITER Encounter for general adult medical examination without abnormal findings documented in this encounter Results * (ABNORMAL) PSA (09/16/2017 2:25 PM ADMINISTRATIVE UNDERWRITER) PSA 4.2(H) <4.0 ng/mL 09/17/2017 12:40 AM ADMINISTRATIVE UNDERWRITER [facility] [employer] [facility] Blood Collection / Unknown 09/16/2017 2:25 PM ADMINISTRATIVE UNDERWRITER 09/16/2017 11:21 PM ADMINISTRATIVE UNDERWRITER Narrative [facility] [employer] [facility] - 09/17/2017 12:40 AM ADMINISTRATIVE UNDERWRITER The concentration of PSA in a given specimen, as determined by assays from different manufacturers, can vary because of differences in assay methods and reagent specificity. Values obtained with different assay methods cannot be used interchangeably. The testing method in use is the CHARO Electrochemiluminescence Immunoassay. Dariel Scott MD CHEMISTRY ORDERABLES Final R esult Performing Organization Address [facility]/State/[facility] Co de Phone Number [facility]# [id number] [address] [place] [id number] documented in this encounter Visit Diagnoses Diagnosis Encounter for general adult medical examination without abnormal findings Routine general medical examination at a health care facility documented in this encounter
--- OUTSIDE RECORDS SUMMARY | 2025-03-17 00:22 | XMS_ITS | Clinical Summary ---
Author Organization [facility] Address [address] [place] [id number] Care Team Providers Care Glazier Helper Name Role Phone Unavailable Primary Care Provider [...]
--- OUTSIDE RECORDS SUMMARY | 2025-03-17 00:22 | XMS_ITS | Clinical Summary ---
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
[2025-03-17 08:03] VITALS: BP 138/80; PULSE 70; RESP 16; TEMP 36.6; O2SAT 100; BMI 24.6
[2025-03-17] MEDS: LACTATED RINGERS 1,000 ML 150 ML IV CONT (08:10)
--- NOTE | 2025-03-17 08:15 | WPDANESEPPF ---
Anes - Initial Pre Proc Eval Procedure: Operation Date: 03/17/25 09:30 Proposed Procedures p Colonoscopy - Javed Kilpatrick MD Date/Time: 03/17/25 08:15 Surgeon: Javed Kilpatrick MD Pre Op Diagnosis: personal hx of colon polyps Patient Data Age: 69 Gender: M Height: 1.78 m Weight: 77.9 kg Last Vital Signs Temp 36.6 C 03/17/25 08:03 Pulse 70 03/17/25 08:03 Resp 16 03/17/25 08:03 BP 138/80 03/17/25 08:03 Pulse Ox 100 03/17/25 08:03 O2 Del Method Room Air 03/17/25 08:03 Allergies Allergy/AdvReac Type Severity Reaction Status Date / Time lisinopril AdvReac Intermediate cough Verified 03/17/25 08:01 fenofibrate AdvReac Unknown Diarrhea Verified 03/17/25 08:01 Home Medications ?Medication ?Instructions ?Recorded ?Confirmed ?Type ergocalciferol (vitamin D2) 1,250 1,250 mcg PO WEEKLY #12 caps 11/01/24 03/17/25 Rx mcg (50,000 unit) capsule irbesartan 300 1 tablet PO DAILY #90 tabs 12/07/24 03/17/25 Rx mg-hydrochlorothiazide 12.5 mg tablet amlodipine 10 mg tablet (Norvasc) 10 mg PO DAILY blood pressure 01/24/25 03/17/25 History Patient hx anesthesia problems: none Family hx anesthesia problems: none Results Review: All pre-operative results and documents have been reviewed as part of the pre-operative evaluation. [facility] Past Medical History Medical History (Updated 02/08/25 @ 14:32 by Hilaria Pace CMA) History of colon polyps Vitamin D deficiency Essential (primary) hypertension Mixed hyperlipidemia Pre-diabetes Labile hypertension Mixed hyperlipidemia Surgical History Surgical History (Updated 02/08/25 @ 14:00 by Jt Bledsoe MA) History of laparoscopic appendectomy 01/24/25 laparoscopic appendectomy, extensive washout of right lower quadrant Dr. Lipscomb Hx of hemorrhoidectomy (~07/2023) Excision right anterior thrombosed external hemorrhoid 08/28/23 ZEFERINO Family History Family History Mother Family history of aortic aneurysm, Onset Age: 71 Father Family history of glaucoma Hypertension Family history of elevated blood lipids Social History Social History Social History: Caffeine- 1.5 cup coffee daily Smoking status: Never smoker Tobacco type: cigars Second hand tobacco smoke exposure: No Alcohol intake: current Drinks per week: 21 Substance use: never Substance use type: does not use Do You Feel Safe in your Home?: Yes Lack of Transportation: No Lack of Food: Never True Current Housing: I Have Housing Concerned About Future Housing: No Difficulty Paying Gas/Electric Bills: No Difficulty Paying for Meds: No Currently Unemployed: No Education: Trade/Vocational Certificate Difficulty w/ Childcare or Family Care: No Living arrangements: with family Gender identity (if verbalized by the patient): Male Spiritual care concerns: No Agree to blood products: Yes Anes - Eval Final PreProcedure Day of Procedure 03/17/25 08:15 Patient weight: normal Heart: regular rate and rhythm Lungs: clear to auscultation and normal air movement Airway: Mallampati scale class II Neurological: alert and oriented Last oral intake: >/= 8 hours ASA classification: III Emergent: no Anesthetic plan: proceed Anesthesia type and monitoring: general GIVS and standard monitoring Results Review: All pre-operative results and documents have been reviewed as part of the pre-operative evaluation. Informed Consent: The patient's anesthetic plan and its attendant risks and benefits were discussed with the patient/family/POA. Questions were solicited and answers provided to the satisfaction of the patient/family/POA.
--- NOTE | 2025-03-17 09:07 | PM.HPGS ---
History of Present Illness History of Present Illness Consent: Risks, benefits, and alternatives have been discussed and questions answered. Patient agrees to proceed with procedure. Chief complaint: personal hx of colon polyps Narrative: Johnathan Gaines is a 69 year old male with history of colon polyp, last colonoscopy 2019 Review of Systems Review of Systems: All systems reviewed & are unremarkable except as noted in HPI and below PMFSH Past Medical History Medical History (Updated 02/08/25 @ 14:32 by Hilaria Pace [facility]) History of colon polyps Vitamin D deficiency Essential (primary) hypertension Mixed hyperlipidemia Pre-diabetes Labile hypertension Mixed hyperlipidemia Surgical History Surgical History (Updated 02/08/25 @ 14:00 by Jt Bledsoe MA) History of laparoscopic appendectomy 01/24/25 laparoscopic appendectomy, extensive washout of right lower quadrant Dr. Lipscomb Hx of hemorrhoidectomy (~07/2023) Excision right anterior thrombosed external hemorrhoid 08/28/23 ZEFERINO Family History Family History Mother Family history of aortic aneurysm, Onset Age: 71 Father Family history of glaucoma Hypertension Family history of elevated blood lipids Social History Social History Social History: Caffeine- 1.5 cup coffee daily Smoking status: Never smoker Tobacco type: cigars Second hand tobacco smoke exposure: No Alcohol intake: current Drinks per week: 21 Substance use: never Substance use type: does not use Do You Feel Safe in your Home?: Yes Lack of Transportation: No Lack of Food: Never True Current Housing: I Have Housing Concerned About Future Housing: No Difficulty Paying Gas/Electric Bills: No Difficulty Paying for Meds: No Currently Unemployed: No Education: Trade/Vocational Certificate Difficulty w/ Childcare or Family Care: No Living arrangements: with family Gender identity (if verbalized by the patient): Male Spiritual care concerns: No Agree to blood products: Yes Meds Home Medications and Allergies Home Medications ?Medication ?Instructions ?Recorded ?Confirmed ?Type ergocalciferol (vitamin D2) 1,250 1,250 mcg PO WEEKLY #12 caps 11/01/24 03/17/25 Rx mcg (50,000 unit) capsule irbesartan 300 1 tablet PO DAILY #90 tabs 12/07/24 03/17/25 Rx mg-hydrochlorothiazide 12.5 mg tablet amlodipine 10 mg tablet (Norvasc) 10 mg PO DAILY blood pressure 01/24/25 03/17/25 History Allergies Allergy/AdvReac Type Severity Reaction Status Date / Time lisinopril AdvReac Intermediate cough Verified 03/17/25 08:01 fenofibrate AdvReac Unknown Diarrhea Verified 03/17/25 08:01 Vital Signs Vital Signs - 24 hr 03/17/25 08:03 Temperature 97.9 F Pulse Rate 70 Respiratory Rate 16 Blood Pressure 138/80 Pulse Oximetry 100 Oxygen Delivery Room Air Exam Const: General: comfortable and no acute distress HENMT: Face/Nose/Sinus: Normal nares present Eyes: General: appearance normal, both eyes and all related structures Neck: Neck: no JVD Resp: Auscultation: clear to auscultation bilaterally Cardio: Rate: regular rate Rhythm: regular rhythm GI: Inspection: non-distended GI Palp: Yes Soft to palpation Skin: General skin exam: normal color Neuro: General: gait normal Speech: normal speech Extrem: General: normal to inspection Psych: Mental Status: mental status grossly normal Assessment and Plan Assessment and plan (1) History of colon polyps: Code(s): Z86.010 - Personal history of colon polyps Status: Acute Assessment and Plan: colonoscopy
--- NOTE | 2025-03-17 09:26 | S_PTH ---
PATIENT: Johnathan Gaines LOC: [facility] Cruz#:[id number] AGE/SX: 69/M ROOM: RE03/17/[address]: Javed Kilpatrick MD : 1955 BED: DIS: 03/17/2025 SPEC #: [id number] RECD: 03/17/25 10:38 STATUS: EUGENE RECat #: [id number] TRISTAN: 03/17/25 09:[address]: Javed Kilpatrick DEPT: [facility] Surgical RECD BY: Mary Ellen Dill ENTERED: 03/17/25 10:38 SP TYPE: Surgical OTHR DR: Jay Jay Alvarez MD Tissues: A - Colon Polypectomy Procedures: Hematoxylin and Eosin Stain Gross and Microscopic Level 4
[2025-03-17 09:27] VITALS: BP 128/71; PULSE 64; RESP 24; O2SAT 100
[2025-03-17 09:37] VITALS: BP 144/76; PULSE 68; RESP 16; O2SAT 100
[2025-03-17 09:47] VITALS: BP 152/73; PULSE 58; RESP 16; O2SAT 100
== END 2025-03-17 09:52 | disposition home or self-care (01) ==
PROVIDERS: PCP Family Medicine; Referring Provider Family Medicine; Visit Provider Internal Medicine Gastroenterology
PROC: 0DJD8ZZ Inspection of Lower Intestinal Tract, Via Natural or Artificial Opening Endoscopic (ICD-10-PCS; CPT 45378; principal; 2025-03-17 09:30)
DX: Z12.11 Encounter for screening for malignant neoplasm of colon (principal); D12.4 Benign neoplasm of descending colon; K64.8 Other hemorrhoids
CPT/HCPCS: 45380; 88305; J2003; J2704; J7120

== ENCOUNTER 2025-06-16 09:04 | Outpatient (CLI) | payer MEDICARE, SELFPAY ==
--- OUTSIDE RECORDS SUMMARY | 2025-06-16 09:31 | XMS_ITS | Clinical Summary ---
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
--- OUTSIDE RECORDS SUMMARY | 2025-06-16 09:31 | XMS_ITS | Encounter Summary ---
Author Organization [facility] Address [address] [place] [address] Care Team Providers Care Fuel Cell Binder Name Role Phone Unavailable Primary Care Provider Unavailabl e Encounter Details Date Type Department Care Team (Late st Contact Info) Description 09/16/2017 Lab Requisition [facility] [employer] [employer] [facility] [address] [place] [address] [place] [id number] [facility] [address] [place] [address] Encounter for general adult medical examination without abnormal findings Social History Tobacco Use Types Packs/Day Years Used Date Smoking Tobacco: Never Assessed Sex and Gender Information Value Date Recorded Sex Assigned at Not on file 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 Gender Identity Not on file Sexual Orientation Not on file documented as of this encounter Plan of Treatment Not on file documented as of this encounter Procedures Procedure Name Priority Date/Time Associated Diagnosis Comments PSA Routine 09/16/2017 2:25 PM WELT BEATER Encounter for general adult medical examination without abnormal findings documented in this encounter Results * (ABNORMAL) PSA (09/16/2017 2:25 PM WELT BEATER) PSA 4.2(H) <4.0 ng/mL 09/17/2017 12:40 AM WELT BEATER [facility] Blood Collection / Unknown 09/16/2017 2:25 PM WELT BEATER 09/16/2017 11:21 PM WELT BEATER Narrative [facility] [employer] [facility] - 09/17/2017 12:40 AM WELT BEATER The concentration of PSA in a given specimen, as determined by assays from different manufacturers, can vary because of differences in assay methods and reagent specificity. Values obtained with different assay methods cannot be used interchangeably. The testing method in use is the CHARO Electrochemiluminescence Immunoassay. Dariel Scott MD CHEMISTRY ORDERABLES Final R esult Performing Organization Address [facility]/State/[facility] Co de Phone Number [facility]# [phone] [address] [place] [address] documented in this encounter Visit Diagnoses Diagnosis Encounter for general adult medical examination without abnormal findings Routine general medical examination at a health care facility documented in this encounter
--- OUTSIDE RECORDS SUMMARY | 2025-06-16 09:31 | XMS_ITS | Clinical Summary ---
Author Organization [facility] Address [address] [place] [id number] Care Team Providers Care Account Financial Manager Name Role Phone Unavailable Primary Care [...] Vaccines (1 of 2) 2007 COVID-19 Vaccine (1 - 2023-2 5 season) 2025 RSV Immunization or 60+ Years (1 - [...]
[2025-06-16 13:12] LABS: Alanine Aminotransferase 29 U/L (6-50); Albumin Level 4.4 g/dL (3.5-5.1); Alkaline Phosphatase 71 U/L (38-126); Anion Gap 6 mmol/L (4-12); Aspartate Amino Transferase 69 U/L (17-59); Bilirubin,Total 0.7 mg/dL (0.2-1.3); Blood Urea Nitrogen 17 mg/dL (9-20); Calcium 9.0 mg/dL (8.4-10.2); Carbon Dioxide 27 mmol/L (22-30); Chloride 99 mmol/L (98-107); Estimated Glomerular Filt Rate > 60; Glucose 101 mg/dL (65-110); Potassium 4.0 mmol/L (3.4-5.0); Sodium 132 mmol/L (137-145); Total Protein 7.6 g/dL (6.3-8.2)
[2025-06-16 14:08] LABS: Hemoglobin A1C 6.0 % (<5.7)
== END 2025-06-16 09:05 | disposition home or self-care (01) ==
PROVIDERS: PCP Family Medicine; Visit Provider Family Medicine
DX: R73.03 Prediabetes (principal); I10 Essential (primary) hypertension
CPT/HCPCS: 36415; 80053; 83036